=== PATIENT | female | born 1980 | race Caucasian/White ===

== ENCOUNTER 2023-11-09 10:51 | Emergency (ER) | payer OTHER, SELFPAY ==
[2023-11-09 11:05] VITALS: BP 153/101; PULSE 72; TEMP 36.7; O2SAT 100; BMI 21.9
[2023-11-09 11:11] VITALS: BP 153/101; O2SAT 100
[2023-11-09 11:16] VITALS: BP 110/73; O2SAT 100
[2023-11-09 11:20] VITALS: O2SAT 100
--- NOTE | 2023-11-09 11:21 | CT_ITS ---
[address] [address] Patient Name: GIANNA ARVIZU MRN: [id number] date: 1980 Sex: F Assigned Patient Location: ER Current Patient Location: ER Accession/Order Number: [id number] Exam Date: 11/09/2023 11:47 Report Date: 11/09/2023 12:33 At the request of: EILEEN DANG Procedure: CT abdomen pelvis w con EXAMINATION: CT abdomen pelvis w con HISTORY: low abd pain , vomiting, burning sensation COMPARISON: CT abdomen and pelvis 04/23/2022 TECHNIQUE: Axial, Coronal, and Sagittal images were obtained without and/or with IV contrast as indicated by examination type. Dose reduction techniques were achieved by using automated exposure control and/or adjustment of mA and/or kV according to patient size and/or use of iterative reconstruction technique. FINDINGS: LUNG BASES: No visible pulmonary or pleural disease. LIVER: No enlargement, atrophy, suspicious density, or significant focal lesion. BILIARY: Cholecystectomy. PANCREAS: No lesion, fluid collection, or abnormal duct dilatation. SPLEEN: No enlargement or focal lesion. ADRENALS: No mass or enlargement. KIDNEYS: No mass, obstruction, or calcification. BOWEL/MESENTERY: Abnormal circumferential wall thickening of approximately 20 cm of the distal ileum extending to the ileocecal valve. No obstruction. Air and fluid throughout colon. AORTA/VASCULAR: No aneurysm or dissection. RETROPERITONEUM: No mass or adenopathy. LYMPH NODES: No adenopathy. URINARY BLADDER: No visible focal wall thickening, lesion, or calculus. PELVIC ORGANS: Hysterectomy. Several cysts within right ovary, largest is 2.1 cm. ABDOMINAL WALL: No mass or hernia. BONES: No bony lesion or fracture. OTHER: Negative. CT/CT abdomen pelvis w con IMPRESSION: 1. Abnormal wall thickening and inflammatory changes of approximately 20 cm of distal ileum suggestive of inflammatory bowel disease. No obstruction. 2. Several cysts within the right ovary, largest is 2.[address] evidence of torsion. Electronically authenticated by: KELLY WOODARD Date: 11/09/2023 12:33
--- NOTE | 2023-11-09 11:22 | ED.ABDPAIN1 ---
HPI - Abdominal Pain General Chief Complaint: Abdominal Pain Stated Complaint: ABDOMINAL PAIN Time Seen by Provider: 11/09/23 10:54 Source: patient Mode of arrival: Wheelchair History of Present Illness HPI narrative: 43-year-old female presents for generalized abdominal pain. She has had this for years and has had extensive workup including upper and lower endoscopies and has seen specialist. She states at 1 point she was diagnosed with IBS and at one point she was diagnosed with Crohn's disease. Recently its gotten worse in the past few days and she has been passing no blood. The pain is moderate and continuous. No trauma Related Data Previous Rx's ?Medication ?Instructions ?Recorded hydrocodone 5 mg-acetaminophen 325 1 tab PO Q6H PRN pain 5 days #20 11/09/23 mg tablet tabs ondansetron 4 mg disintegrating 4 mg PO Q6H PRN nausea and 11/09/23 tablet vomiting #20 tabs Allergies Allergy/AdvReac Type Severity Reaction Status Date / Time sulfamethoxazole Allergy Severe Verified 11/09/23 11:12 [From Bactrim] trimethoprim [From Bactrim] Allergy Severe Verified 11/09/23 11:12 Review of Systems ROS Narrative A ten point review of systems is negative except as noted above. Exam Narrative Exam Narrative: Nurses note and vital signs reviewed and patient is not hypoxic. General: The patient appears well and in no apparent distress. Patient is resting comfortably on cart. Skin: Warm, dry, no pallor noted. There is no rash noted. Head: Normocephalic, atraumatic Eye: Normal conjunctiva, no drainage Ears, Nose, Mouth, and Throat: oral mucosa is moist. Nares patent. Cardiovascular: Regular Rate and Rhythm Respiratory: Patient is in no distress, no accessory muscle use, lungs are clear to auscultation, no wheezing, rales or rhonchi Back: non-tender, no CVA tenderness bilaterally to percussion. GI: Normal bowel sounds, mild diffuse tenderness without distention rebound guarding or mass Musculoskeletal: The patient has no evidence of calf tenderness, no pitting edema, symmetrical pulses noted bilaterally Neurological: A&O, normal speech Psychiatric: Cooperative Constitutional Vital Signs, click to edit/add: Last Vital Signs Temp 98.0 F 11/09/23 11:05 Pulse 72 11/09/23 11:05 Resp 22 H 11/09/23 11:05 BP 110/73 11/09/23 11:16 Pulse Ox 100 11/09/23 11:20 O2 Del Method Room Air 11/09/23 11:05 Course Vital Signs Vital signs: Vital Signs Temperature 98.0 F 11/09/23 11:05 Pulse Rate 72 11/09/23 11:05 Respiratory Rate 22 H 11/09/23 11:05 Blood Pressure 153/101 H 11/09/23 11:05 Pulse Oximetry 100 11/09/23 11:05 Oxygen Delivery Method Room Air 11/09/23 11:05 Temperature 98.0 F 11/09/23 11:05 Pulse Rate 72 11/09/23 11:05 Respiratory Rate 22 H 11/09/23 11:05 Blood Pressure 110/73 11/09/23 11:16 Pulse Oximetry 100 11/09/23 11:20 Oxygen Delivery Method Room Air 11/09/23 11:05 MDM - Abdominal Pain MDM Narrative Medical decision making narrative: Blood work is nonspecific. CAT scan findings are discussed with the patient and she is referred to general surgery for follow-up. Treatment diagnosis and follow-up were discussed with the patient. She has been told in the past that she has Crohn's disease after an endoscopy. Differential Diagnosis Differential diagnosis: Likely abdominal pain, constipation, diverticulitis, gastroenteritis, pancreatitis and small bowel obstruction Lab Data Attestation: I reviewed the patient's lab results. Labs: Lab Results 11/09/23 Range/Units 11:15 WBC 12.7 H (4.0-11.0) 10^3/uL RBC 4.11 L (4.20-5.40) 10^6/uL Hgb 11.5 L (12.0-16.0) g/dL Hct 34.9 L (36.0-48.0) % MCV 84.9 (81.0-99.0) fL MCH 28.0 (26.7-34.0) pg MCHC 33.0 (29.9-35.2) g/dL RDW 14.7 (11.0-15.0) % Plt Count 269 (150-450) 10^3/uL MPV 10.1 (9.5-13.5) fL Neut % (Auto) 83.8 H (43.0-75.0) % Lymph % (Auto) 8.4 L (20.5-60.0) % [place] % (Auto) 5.9 (1.7-12.0) % Eos % (Auto) 0.8 L (0.9-7.0) % Baso % (Auto) 0.5 (0.2-2.0) % Neut # (Auto) 10.6 H (1.4-6.5) 10^3/uL Lymph # (Auto) 1.1 L (1.2-3.8) 10^3/uL [place] # (Auto) 0.8 (0.3-0.8) 10^3/uL Eos # (Auto) 0.1 (0.0-0.7) 10^3/uL Baso # (Auto) 0.1 (0.0-0.1) 10^3/uL Abs Immat Gran (auto) 0.08 H (0.00-0.03) 10^3/uL Imm/Tot Granulo (auto) 0.6 H (0.0-0.5) % Sodium 141 (136-145) mmol/L Potassium 3.7 (3.5-5.1) mmol/L Chloride 107 (98-107) mmol/L Carbon Dioxide 24.5 (21.0-32.0) mmol/L Anion Gap 13.2 BUN 16.0 (7.0-18.0) mg/dL Creatinine 1.13 H (0.55-1.02) mg/dL Est GFR ( Amer) >60 (>=60) Est GFR (Non-Af Amer) 53 L (>=60) BUN/Creatinine Ratio 14.2 Glucose 113 H (74-106) mg/dL Calcium 8.8 (8.5-10.1) mg/dL Total Bilirubin 0.3 (0.2-1.0) mg/dL Direct Bilirubin 0.1 (0.0-0.2) mg/dL AST 13 L (15-37) U/L ALT 15 (14-59) U/L Alkaline Phosphatase 52 (46-116) U/L Total Protein 7.3 (6.4-8.2) g/dL Albumin 3.6 (3.4-5.0) g/dL Globulin 3.7 g/dL Albumin/Globulin Ratio 1.0 Amylase 48 (25-115) U/L Lipase 25.0 (16.0-77.0) U/L Imaging Data CT scan - abdomen: Radiologist's impression: ITS Impressions Abdomen/Pelvis CT 11/09/23 11:21 IMPRESSION: 1. Abnormal wall thickening and inflammatory changes of approximately 20 cm of distal ileum suggestive of inflammatory bowel disease. No obstruction. 2. Several cysts within the right ovary, largest is 2.[address] evidence of torsion. Electronically authenticated by: KELLY WOODARD Date: 11/09/2023 12:33 Discharge Plan Discharge Stand Alone Forms: Portal Instructions Chief Complaint: Abdominal Pain Clinical Impression: Abdominal pain Patient Disposition: Home, Self-Care Time of Disposition Decision: 13:15 Condition: Good Mode of Transportation: Private Vehicle Prescriptions / Home Meds: New hydrocodone-acetaminophen 5-325 mg tablet 1 tab PO Q6H PRN (Reason: pain) 5 Days Qty: 20 0RF ondansetron 4 mg tablet,disintegrating 4 mg PO Q6H PRN (Reason: nausea and vomiting) Qty: 20 0RF Print Language: Danish Instructions: Crohn Disease (ED), Abdominal Pain (ED) Additional Instructions: Follow-up with Dr. Jones Referrals: DIGNA BOWER [Primary Care Provider] - 1 week
[2023-11-09 11:30] LABS: Basophils Absolute Auto 0.1 10^3/uL (0.0-0.1); Basophils Percent Auto 0.5 % (0.2-2.0); Eosinophils Absolute Auto 0.1 10^3/uL (0.0-0.7); Eosinophils Percent Auto 0.8 % (0.9-7.0); Hematocrit 34.9 % (36.0-48.0); Hemoglobin 11.5 g/dL (12.0-16.0); Immature Granulocytes Abs Auto 0.08 10^3/uL (0.00-0.03); Immature Granulocytes Pct Auto 0.6 % (0.0-0.5); Lymphocytes Absolute Auto 1.1 10^3/uL (1.2-3.8); Lymphocytes Percent Auto 8.4 % (20.5-60.0); Mean Corpuscular Volume 84.9 fL (81.0-99.0); Mean Platelet Volume 10.1 fL (9.5-13.5); Monocytes Absolute Auto 0.8 10^3/uL (0.3-0.8); Monocytes Percent Auto 5.9 % (1.7-12.0); Neutrophils Absolute Auto 10.6 10^3/uL (1.4-6.5); Neutrophils Percent Auto 83.8 % (43.0-75.0); Platelet Count 269 10^3/uL (150-450); Red Blood Count 4.11 10^6/uL (4.20-5.40); Red Cell Distribution Width 14.7 % (11.0-15.0); White Blood Count 12.7 10^3/uL (4.0-11.0)
[2023-11-09] MEDS: 0.9 % SODIUM CHLORIDE 1,000 ML 1000 ML IV (11:38)
[2023-11-09] MEDS: ONDANSETRON PF 4 MG/2 ML VIAL IV (11:39)
[2023-11-09] MEDS: MORPHINE SULFATE 4 MG/ML VIAL IV (11:39)
[2023-11-09 11:49] LABS: Alanine Aminotransferase 15 U/L (14-59); Albumin Level 3.6 g/dL (3.4-5.0); Alkaline Phosphatase 52 U/L (46-116); Amylase 48 U/L (25-115); Anion Gap 13.2; Aspartate Amino Transferase 13 U/L (15-37); BUN Creatinine Ratio 14.2; Bilirubin Direct 0.1 mg/dL (0.0-0.2); Bilirubin Total 0.3 mg/dL (0.2-1.0); Calcium 8.8 mg/dL (8.5-10.1); Carbon Dioxide 24.5 mmol/L (21.0-32.0); Chloride 107 mmol/L (98-107); Estimated GFR (African America >60 (>=60); Estimated GFR (Non-African Ame 53 (>=60); Globulin 3.7 g/dL; Glucose 113 mg/dL (74-106); Potassium 3.7 mmol/L (3.5-5.1); Sodium 141 mmol/L (136-145); Total Protein 7.3 g/dL (6.4-8.2)
== END 2023-11-09 13:34 | disposition home or self-care (01) ==
PROVIDERS: Emergency Provider Emergency Medicine; PCP Nurse Practitioner Family
DX: R10.9 Unspecified abdominal pain (principal)
CPT/HCPCS: 36415; 74177; 80048; 80076; 81001; 82150; 83690; 85025; 96374; 96375; 99285; Q9967